=== PATIENT | female | born 1945 | race Caucasian/White ===

== ENCOUNTER → 2020-11-25 10:25 | Outpatient (CLI) | payer MEDICARE, OTHER, SELFPAY ==
--- NOTE | 2020-11-25 10:55 | DI.RAD.S_ITS ---
PROCEDURE: XR TIBIA FIBULA LT 2V INDICATIONS: mass/tender distal 1/3 tibia/distal fibula r/o bony lesion TECHNIQUE: 2 views of the tibia and fibula were acquired. COMPARISON: None. FINDINGS: Bones: No fractures or dislocations. No suspicious bony lesions. Soft tissues: No suspicious soft tissue calcifications or masses. IMPRESSION: No acute osseous abnormalities. No mass lesion is visualized. If clinical symptoms persist or clinical suspicion for pathology is high, MRI with and without contrast is suggested for further evaluation. Dictated by: Justo Nelson M.D. on 11/25/2020 at 17:04 Approved by: Justo Nelson M.D. on 11/25/2020 at 17:06
== END ==
PROVIDERS: Referring Provider Specialist; Visit Provider Specialist
DX: M79.605 Pain in left leg (principal); L98.9 Disorder of the skin and subcutaneous tissue, unspecified
CPT/HCPCS: 73590; 99213